=== PATIENT | female | born 1965 ===

== ENCOUNTER 2019-02-23 08:57 | Day surgery (SDC) | payer OTHER ==
[~2019-02-23 08:57] MED LIST: Lactated Ringers 1,000 ML IV SCH; Lidocaine 1%/Sod Bicarbonate in NS 8.4% 1 ML Syringe IDERM PRN; Sodium Chloride 0.9% 10 ML Syringe FLUSH PRN
--- NOTE | 2019-02-23 09:20 | PCM.PREANE ---
Preanesthetic Assessment - Anesthesia/Transfusion/Family Hx Anesthesia History: Prior Anesthesia Reaction Family History of Anesthesia Reaction: No Transfusion History: No Prior Transfusion(s) Intubation History: Unknown - Review of Systems General: No Symptoms Pulmonary: No Symptoms, Other Cardiovascular: Palpitations Gastrointestinal: No Symptoms Neurological: Headache - Physical Assessment NPO Status Date: 02/23/19 NPO Status Time: 06:00 Height: 1.63 m Weight: 93.894 kg ASA Class: 3 Mental Status: Other Airway Class: Mallampati = 2 Dentition: Reports: Normal Dentition ROM/Head Extension: Full Lungs: Clear to Auscultation Cardiovascular: Regular Rate - Allergies Allergies/Adverse Reactions: Allergies Allergy/AdvReac Type Severity Reaction Status Date / Time No Known Allergies Allergy Verified 02/22/19 14:25 - Blood Blood Available: No Product(s) Available: None - Acknowledgements Anesthesia Type Planned: MAC Pt an Appropriate Candidate for the Planned Anesthesia: Yes Alternatives and Risks of Anesthesia Discussed w Pt/Guardian: Yes Pt/Guardian Understands and Agrees with Anesthesia Plan: Yes Additional Comments: forgetful- unable to remember dates and can't answer questions without thinking or just can't answer-uses marijuana- doesn't know how often - had gastric bypass done 7 yrs. ago - poor historian - vague on questions- seems purposeful PreAnesthesia Questionnaire HEENT History: Reports: Allergic Rhinitis, Impaired Vision, Other (See Below) Other HEENT History: tinnitis, wears glasses Cardiovascular History: Reports: High Cholesterol, Hypertension Respiratory History: Reports: None Gastrointestinal History: Reports: Other (See Below) Other Gastrointestinal History: gastric sleeve Genitourinary History: Reports: Chronic Renal Insuffiency LOG FEEDER History: Reports: None Musculoskeletal History: Reports: None Neurological History: Reports: None Psychiatric History: Reports: Depression Endocrine/Metabolic History: Reports: Vitamin D Deficiency Hematologic History: Reports: Other (See Below) Other Hematologic History: hypokalemia Immunologic History: Reports: None Oncologic (Cancer) History: Reports: None Dermatologic History: Reports: None - Past Surgical History Head Surgeries/Procedures: Reports: None HEENT Surgical History: Reports: None Cardiovascular Surgical History: Reports: None Respiratory Surgical History: Reports: None GI Surgical History: Reports: Bariatric Procedure Female Surgical History: Reports: Hysterectomy, Tubal Ligation Male Surgical History: Reports: None Endocrine Surgical History: Reports: None Neurological Surgical History: Reports: None Musculoskeletal Surgical History: Reports: None Oncologic Surgical History: Reports: None Dermatological Surgical History: Reports: None - SUBSTANCE USE Smoking Status *Q: Current Every Day Smoker Recreational Drug Use History: Yes Recreational Drug Type: Reports: Marijuana/Hashish - HOME MEDS Home Medications: Home Meds Cetirizine [ZyrTEC] 10 mg PO DAILY 02/22/19 [History] Losartan/Hydrochlorothiazide [Losartan-HCTZ 100-12.5 MG] 1 tab PO DAILY [History] Potassium Chloride 20 meq PO DAILY 02/22/19 [History] Topiramate 50 mg PO BEDTIME 02/22/19 [History] atorvaSTATin [Lipitor] 40 mg PO DAILY 02/22/19 [History] - CURRENT (IN HOUSE) MEDS Current Meds: Current Medications Lactated Ringer's (Ringers, Lactated) 1,000 mls @ 125 mls/hr IV ASDIRECTED HAN Stop: 02/23/19 23:00 Lidocaine/Sodium Bicarbonate (Buffered Lidocaine 1% In Ns 8.4%) 0.25 ml IDERM ONETIME PRN PRN Reason: Prior to IV Start Stop: 02/23/19 18:00 Sodium Chloride (Saline Flush) 10 ml FLUSH ASDIRECTED PRN PRN Reason: Keep Vein Open Stop: 02/23/19 18:00
[2019-02-23] MEDS ORDERED: Midazolam 1 MG/ML 2 ML SDV ONE (10:43)
[2019-02-23] MEDS ORDERED: fentaNYL 100 MCG/2 ML SDV ONE (10:43)
[2019-02-23] MEDS ORDERED: Propofol 200 MG/20 ML SDV ONE ×3 (10:45→10:55)
[2019-02-23] MEDS ORDERED: Ketorolac 30 MG/ML SDV ONE (10:57)
[2019-02-23] MEDS ORDERED: Ondansetron 4 MG/2 ML SDV ONE (10:57)
--- NOTE | 2019-02-23 11:19 | PCM48HPAN ---
Post Anesthesia Note - EVALUATION WITHIN 48HRS OF ANESTHETIC Vital Signs in Normal Range: Yes Patient Participated in Evaluation: Yes Respiratory Function Stable: Yes Airway Patent: Yes Cardiovascular Function Stable: Yes Hydration Status Stable: Yes Pain Control Satisfactory: Yes Nausea and Vomiting Control Satisfactory: Yes Mental Status Recovered: Yes Resp Rate: 16
--- NOTE | 2019-02-23 11:19 | PCM.POSTAN ---
POST ANESTHESIA ASSESSMENT - MENTAL STATUS Mental Status: Alert - RESPIRATORY Respiratory Status: Respiratory Rate WNL, Airway Patent, O2 Saturation Stable, Supplemental Oxygen - CARDIOVASCULAR CV Status: Pulse Rate WNL, Blood Pressure Stable - GASTROINTESTINAL GI Status: No Symptoms - POST OP HYDRATION Hydration Status: Adequate & Stable
[2019-02-23] MEDS ORDERED: Diphtheria,Pertussis(Acell),Tetanus Vaccine 0.5 ML Syringe IM ONE (11:45)
--- NOTE | 2019-02-23 16:16 | OR ---
DATE OF OPERATION: 02/23/2019 SURGEON: Dylan Fried MD PREOPERATIVE DIAGNOSIS: Colorectal cancer screening. POSTOPERATIVE DIAGNOSIS: 1. Colorectal cancer screening. 2. Diverticulosis. 3. Colon polyps. OPERATION PERFORMED: Screening colonoscopy, snare polypectomy, and ablation of polyps x2. ESTIMATED BLOOD LOSS: Minimal. ANESTHESIA: MAC. PATHOLOGY: 1. Sigmoid colon polyp. 2. Transverse colon polyp. 3. Rectosigmoid junction polyp. BOWEL PREP: Excellent. DISPOSITION: Stable at the end of the procedure. INDICATION: Nancy is a 53-year-old female who has never had a colonoscopy. She was offered a screening colonoscopy per the standard of care. She was fully informed of the major risks, benefits, and alternatives. The risks include, but are not limited to perforation of the colon, bleeding, the risks of anesthesia, the possibility of further surgery, and many others. She gave informed consent. DESCRIPTION OF PROCEDURE: Nancy was brought to the gastro suite and placed in the left lateral decubitus position. She was given monitored anesthesia. A digital rectal exam was performed. This was unremarkable with copious lubrication. I introduced the colonoscope into the rectum. I advanced the scope with gentle forward pressure keeping the lumen in view at all times. I had reached the cecum and documented the cecum photographically. I slowly investigated the mucosa of the colon from the cecum back to the anus in an exam lasting 7 minutes. A thorough careful examination demonstrated 3 polyps. These polyps were identified and removed. The largest of these polyps was a sigmoid colon polyp. This was removed with a snare with electrocautery. Unfortunately, the polyp was too large to evacuate through the suction, so I withdrew the scope and then reinserted it in the same fashion. I identified 2 additional polyps, 1 in the transverse colon and 1 in the rectosigmoid junction. Both these polyps were removed in their entirety with biopsy forceps. The remainder of her exam was unremarkable except for that listed above including diverticulosis. The scope was withdrawn. She was awakened from anesthesia and moved to recovery in stable condition. PLAN: Based on my findings today, she will need another colonoscopy in 3 years. However, if this changes, my office will notify her. MMODAL /[id number]
== END 2019-02-23 11:55 | disposition home or self-care (01) ==
LOC: JD.SDS 08:57
PROVIDERS: ATTEND Surgery
DX: Z12.11 Encounter for screening for malignant neoplasm of colon (principal); D12.7 Benign neoplasm of rectosigmoid junction; D12.5 Benign neoplasm of sigmoid colon; D12.3 Benign neoplasm of transverse colon; K57.30 Diverticulosis of large intestine without perforation or abscess without bleeding; I10 Essential (primary) hypertension; E78.5 Hyperlipidemia, unspecified; R73.03 Prediabetes; F17.210 Nicotine dependence, cigarettes, uncomplicated; F32.9 Major depressive disorder, single episode, unspecified; N28.9 Disorder of kidney and ureter, unspecified; Z79.899 Other long term (current) drug therapy
CPT/HCPCS: 45380; 45385; 90700; J1885; J2250; J2405; J2704; J3010; J7120; 00812